=== PATIENT | female | born 1985 | race Caucasian/White ===

== ENCOUNTER 2018-03-27 06:56 | Day surgery (SDC) | payer OTHER ==
[~2018-03-27 06:56] MED LIST: DIPHENHYDRAMINE HCL 50 MG/ML VIAL ONE; FENTANYL CITRATE INJ/PF 100 MCG/2 ML AMPUL ONE; LIDOCAINE 0.5% INJ-PF (5 MG/ML) 50 ML SDV SUBCUT PRN; LIDOCAINE 2% INJ-PF (20 MG/ML) 10 ML AMPUL ONE; MIDAZOLAM 2 MG/2 ML INJ ONE; MITOMYCIN OPH SOLN 0.02% 2 ML OP PRN; MOXIFLOXACIN HCL 0.5% OPH SOLN 3 ML OD PRN; ONDANSETRON HCL INJ/PF 4 MG/2 ML SDV ONE; PROPOFOL INJ 200 MG/20 ML VIAL IV ONE; RINGERS SOLUTION,LACTATED 500 ML IV PRN
[2018-03-27] MEDS: TETRACAINE HCL 0.5% OPH SOLN 0.6 ML DROPERETTE OD PRN ×3 (07:19→08:20)
[2018-03-27] MEDS: CYCLOPENTOLATE 0.2%/PHENYLEPHRINE 1% OPH SOLN 2 ML OD PRN ×3 (07:20→07:49)
[2018-03-27] MEDS: BESIFLOXACIN HCL 0.6% OPH SUSP 5 ML BOTTLE OD PRN ×3 (07:20→07:50)
[2018-03-27] MEDS ORDERED: LIDOCAINE 2% INJ (20 MG/ML) 20 ML MDV ONE (08:14)
[2018-03-27] MEDS ORDERED: BUPIVACAINE HCL 0.75% INJ/PF (7.5 MG/1 ML) 10 ML SDV ONE (08:14)
[2018-03-27] MEDS ORDERED: BALANCED SALT IRRIG SOLN COMB2 15 ML BOTTLE ONE (08:17)
[2018-03-27] MEDS ORDERED: TOBRAMYCIN SULFATE/DEXAMETH OPH OINTMENT 3.5 GM ONE (08:17)
[2018-03-27] MEDS ORDERED: POVIDONE-IODINE 5% OPH PREP SOLN 30 ML ONE (08:17)
[2018-03-27] MEDS: HYALURONIDASE INJ 150 UNIT/1 ML VIAL ONE ×2 (08:35→08:40)
--- NOTE | 2018-03-27 14:44 | [facility] OPERATIVE REPORT E ---
[facility] Operative Report NAME: RAVINDRA GALVIN AGE: 32Y DATE OF SURGERY: 03/27/2018 ROOM: PREOPERATIVE DIAGNOSIS: Pterygium of the right eye, progressive. POSTOPERATIVE DIAGNOSIS: Pterygium of the right eye, progressive. OPERATION: Pterygium excision with use of amniotic membrane as well as mitomycin-C. SURGEON: WALDEMAR RAMON M.D. ANESTHESIA: Retrobulbar block of 2% Lidocaine and 0.75% Marcaine in a 50/50 mixture along with 0.75 units of Hyaluronidase. PROCEDURE: After obtaining appropriate informed consent, the patient's right eye was prepped and draped in sterile fashion. After a retrobulbar block was performed, in a sterile manner, pterygium surgery was started. Attention was made to the nasal pterygium. The remainder of the retrobulbar block mixture was injected with a 25-gauge needle subconjunctivally to balloon up the appropriate pterygium. A marking pen was used to outline the area to be excised. Then a 0.5 forceps and [place] were used to dissect along the outlined margins. Following this, the underlying tenons was removed and undermined as well. Hemostasis was achieved with cautery. Attention was made to the corneal section of the pterygium where this was peeled off and then smoothed with a [place] blade. At this time, Mitomycin-soaked sponges were brought to the sterile field and placed subconjunctivally along the margins and left to soak there for approximately 2 minutes which was timed. Copious irrigation. These were removed and then copious irrigation was performed to make sure that all of the Mitomycin was flushed out of the eye. Next, a caliper was used to measure the remaining defect in the conjunctiva. An amniotic membrane that was dry was then cut to fill this space making sure to leave it a little large so that the conjunctiva could overlap its margins. The Tisseel glue was then applied to the amniotic membrane and found to be in excellent position with overlying *------* and all its borders and up to the limbus. This was smoothed out with [place] and found to be in great position. Following this, Tobradex was instilled into the eye, and the speculum was removed, and a pressure patch was then placed due to *------* retrobulbar block. The patient woke up in postop recovery in stable condition and tolerated the procedure well. DICTATING PHYSICIAN: WALDEMAR RAMON M.D. [id number] PHY#: [id number] ID: [id number] JOB#: [id number] ACCT: [id number] cc:WALDEMAR RAMON M.D. >
--- NOTE | 2018-03-27 19:24 | [facility] DISCHARGE SUMMARY E ---
[facility] Discharge Summary NAME: RAVINDRA GALVIN AGE: 32Y ADMITTED: 03/27/2018 DISCHARGED: 03/27/2018 This is a 32-year-old female who underwent pterygium excision with amniotic membrane and Mitomycin C. DIAGNOSIS: Pterygium of the right eye. INDICATIONS: The patient underwent surgery because she was having significant pain and discomfort due to the elevation of the pterygium. This was attempted to be treated medically with drops. However, the patient was still very uncomfortable, and therefore, it was decided to remove it. The specimen was sent to pathology. DISCHARGE INSTRUCTIONS: The patient is to use TobraDex in the eye 3 times a day starting postop day 1. Today, they are supposed to leave the pressure patch on and the rigid shield, and they will take that off in the morning. They are to be on a regular diet. They were given the environmental compliance inspector number to call us if they have any questions or concerns, and I will see them for a 1 week postoperative visit. DICTATING PHYSICIAN: WALDEMAR RAMON M.D. [id number] PHY#: [id number] ID: [id number] JOB#: [id number] ACCT: [id number] cc:WALDEMAR RAMON M.D. >
[2018-03-28] MEDS ORDERED: CYCLOPENTOLATE 0.2%/PHENYLEPHRINE 1% OPH SOLN 2 ML OD PRN (05:00)
== END 2018-03-27 10:00 | disposition home or self-care (01) ==
LOC: SC 06:56
PROVIDERS: ATTEND Internal Medicine
DX: H11.001 Unspecified pterygium of right eye (principal); H11.152 Pinguecula, left eye; E03.9 Hypothyroidism, unspecified; Z79.899 Other long term (current) drug therapy; R07.89 Other chest pain
CPT/HCPCS: 88305 ×2; 65426; J2250; J3490 ×6; J1200; J3010; J2405; J2704; J9280; J3470; 140